=== PATIENT | female | born 1975 | race Caucasian/White ===

== ENCOUNTER 2018-09-15 11:35 | Emergency (ER) | payer OTHER ==
[~2018-09-15] VITALS: Ht 180.3 cm; Wt 104.3 kg
[~2018-09-15 11:35] MED LIST: ATENOLOL-CHLOR1 EACH; BENTYL10 MG PO; CLONAZEPAM; CYMBALTA60 MG; GABAPENTIN PO; LYRICA 75 MG CA75 MG; NORFLEX100 MG; PREDNISONE 20 M20 M1 PO; SEROQUEL XR50 MG; TRAMADOL 50 MG50 MG; ULTRAM 50MG TAB50 MG PO; VALIUM5 MG PO; VICODIN; ZANAFLEX2 M1
[2018-09-15] MEDS ORDERED: LATUDA40 MG PO (11:42)
[2018-09-15] MEDS ORDERED: NEURONTIN 400400 M1 PO (11:42)
[2018-09-15] MEDS ORDERED: AMITRIPTYLINE H75 M1 PO (11:43)
[2018-09-15] MEDS ORDERED: TRAZODONE 150150 M1 PO (11:43)
[2018-09-15] MEDS ORDERED: PERCOCET 10-321 EACH PO (11:44)
[2018-09-15] MEDS ORDERED: MIRALAX17 G1 PO (11:44)
[2018-09-15] MEDS ORDERED: IBUPROFEN 600600 M1 PO (12:18)
[2018-09-15 13:05] VITALS: BP 130/77
== END 2018-09-15 13:06 | disposition home or self-care (01) ==
LOC: ER 11:35
DX: S93.401A Sprain of unspecified ligament of right ankle, initial encounter (principal); M79.7 Fibromyalgia; M06.9 Rheumatoid arthritis, unspecified; G47.00 Insomnia, unspecified; F17.210 Nicotine dependence, cigarettes, uncomplicated; Z88.5 Allergy status to narcotic agent; W18.30XA Fall on same level, unspecified, initial encounter; Y93.89 Activity, other specified; Y92.89 Other specified places as the place of occurrence of the external cause; Y99.8 Other external cause status